=== PATIENT | female | born 1930 | race Caucasian/White ===

== ENCOUNTER 2016-09-17 13:29 | Inpatient (IN) ==
--- NOTE | 2016-09-17 13:36 | Emergency Department Note ---
Disposition Clinical Impression: Altered mental status Disposition: Home, Self-Care Condition: Fair Referrals: Nathan Arndt MD [Primary Care Provider] - Forms: ED Satisfaction Letter Time of Disposition: 15:30 (jacob serna) Altered Mental Status HPI - General Chief Complaint: ED Altered Mental Status Stated Complaint: increased confusion/ incontinent of bowel Time Seen by Provider: 09/17/16 13:35 Source: patient, family Mode of arrival: wheelchair Limitations: no limitations Nursing Notes Reviewed: Yes Vital Signs Reviewed: Yes - History of Present Illness HPI Narrative: Patient seen last evening family states that she is having further deterioration in control bowel movements urination just defecating herself not being able to get make it where normally she was able to that she has no focal weakness no chest pain or chest pressure patient denies feeling funny in anyway just sit and smiles in the wheelchair complaint: altered mental status, confusion Onset (ago): unknown Timing confirmed by: family member (continued deterioration since las pm) Consistency of Symptoms: waxing and waning, getting worse Context: change in medication (by not taking correctly) Associated symptoms: Reports: loss of appetite, malaise, weakness. Denies: chest pain, cough, diaphoresis, fever, chills, headaches, nausea/vomiting, rash , seizure, shortness of breath, syncope, foul smelling urine, difficulty walking , diarrhea, incontinence - Related Data Home Medications Medication Instructions Recorded Confirmed Aspirin 81 mg PO DAILY 03/12/15 09/17/16 Calcium Carbonate/Vitamin D3 600 unit PO DAILY 03/12/15 09/17/16 [Calcium 600+D Softgel] Digoxin [Lanoxin] 125 mcg PO DAILY 03/12/15 09/17/16 Diltiazem CD (24hr) [Cardizem CD] 360 mg PO DAILY 03/12/15 09/17/16 Furosemide [Lasix] 20 mg PO DAILY 03/12/15 09/17/16 Metoprolol [Lopressor] 100 mg PO BID 03/12/15 09/17/16 Valsartan [Diovan] 160 mg PO DAILY 03/12/15 09/17/16 Enoxaparin Sodium [Lovenox] 20 mg SQ QPM 09/16/16 09/17/16 Famotidine [Pepcid] 40 mg PO DAILY 09/16/16 09/17/16 Fluconazole [Diflucan] 150 mg PO DAILY 09/16/16 09/17/16 HYDROcodone/Acet 5/325 mg [[place] 1 tab PO TID 09/16/16 09/17/16 5-325 mg] Rivaroxaban [Xarelto] 20 mg PO DAILY 09/16/16 09/17/16 Trazodone HCl 50 mg PO HS 09/16/16 09/17/16 Previous Rx's Medication Instructions Recorded Isosorbide MONOnitrate (24 HR) 30 mg PO DAILY #30 tab.er.24h 10/21/15 [Imdur] Furosemide [Lasix] 40 mg PO DAILY #15 tablet 09/17/16 Allergies Allergy/AdvReac Type Severity Reaction Status Date / Time amiodarone Allergy Difficulty Verified 10/19/15 08:33 Swallowing ciprofloxacin [From Cipro] Allergy Hives Verified 10/19/15 08:33 doxycycline Allergy Hives Verified 10/19/15 08:33 Sulfa (Sulfonamide Allergy Hives Verified 10/19/15 08:33 Antibiotics) pravastatin AdvReac Dizziness Verified 07/02/16 11:34 tramadol AdvReac Hypertensio Verified 07/02/16 11:34 n All systems ED: reviewed and negative except as stated. Constitutional: Reports: weakness. Denies: fever, chills Eyes: Denies: vision change ENT ED: Denies: ear pain, congestion Cardiovascular: Denies: chest pain, palpitations Respiratory: Denies: cough, dyspnea Gastrointestinal: Denies: abdominal pain, nausea Genitourinary: Denies: urgency, dysuria Musculoskeletal: Denies: back pain, neck pain Integumentary: Denies: rash Neurological: Denies: headache Psychiatric: Denies: anxiety Endocrine: Reports: fatigue Hematological/Lymphatic: Denies: easy bleeding Allergic/Immunologic: Denies: facial swelling Past Medical History - Past Medical History Attestation: Yes The following information was validated with the patient. Source: patient, old records reviewed, nursing notes reviewed Medical history: Reports: arthritis, atrial fibrillation, CHF, GERD, GI bleed, hyperlipidemia, hypertension, osteoporosis Surgical history: Reports: breast surgery, cholecystectomy, herniorrhaphy, pacemaker/AICD (PPM for SSS 2007), other (Patient has had a breast biopsy which was benign.) Psychiatric history: Reports: no psych history [employer] MACHINE history: Reports: no OUTSOLE [employer] MACHINE history - Social History Smoking Status: Former smoker Smokeless Tobacco Status: No Alcohol use: Reports: none Drug use: Reports: none Physical Exam - General Limitations: no limitations General appearance: alert, in no apparent distress, cachectic - Head Head exam: atraumatic, normocephalic, normal inspection - Eye Eye exam: Present: normal appearance, PERRL, EOMI - ENT ENT exam: normal exam, normal oropharynx, mucous membranes moist, TM's normal bilaterally, normal external ear exam - Neck Neck exam: Present: normal inspection, full ROM, trachea midline - Chest Chest inspection: Present: normal inspection, symmetric chest wall rise - Respiratory Respiratory exam: Present: normal lung sounds bilaterally - Cardiovascular Cardiovascular exam: Present: regular rate, normal rhythm, normal heart sounds - Abdominal Exam Abdominal exam: Present: soft, Non-Tender, normal bowel sounds. Absent: mass, pulsatile mass - Expanded Upper Extremity Exam Shoulder exam: Present: normal inspection, full ROM Arm exam: Present: normal inspection, full ROM Elbow exam: Present: normal inspection, full ROM Forearm/Wrist exam: Present: normal inspection, full ROM Hand exam: Present: normal inspection, full ROM Vascular exam: Normal: capillary refill, radial pulse - Expanded Lower Extremity Exam Hip/Pelvis exam: Present: normal inspection, full ROM Upper leg exam: Present: normal inspection, full ROM Knee exam: Present: normal inspection, full ROM Lower leg exam: Present: normal inspection, full ROM Ankle exam: Present: normal inspection, full ROM Foot/toe exam: Present: normal inspection, full ROM Neurovascular/Tendon exam: Present: normal capillary refill, normal fine/light touch. Absent: motor deficit, sensory deficit, tendon deficit Gait: other (global weakness) - Back Exam Back exam: Present: normal inspection, full ROM. Absent: muscle spasm - Neurological Exam Neurological exam: Present: alert, CN II-XII intact, other (pleasantly confused ) - Psychiatric Psychiatric exam: Present: normal affect, normal mood - Skin Skin exam: Present: warm, dry, intact, normal color Course Course Narrative: Is an elderly female cooperative awaiting results of test to be admitted or discharged home family is at bedside today. Become comfortable with explained the findings to the family work and admit her for 23 hour observation with possible arrangements to transfer her ultimately to [facility] bed facility when available Vital Signs Temperature 98.0 F 02/17/17 13:32 Pulse Rate 66 09/17/16 13:32 Respiratory Rate 18 09/17/16 13:32 Blood Pressure 168/73 09/17/16 13:32 O2 Sat by Pulse Oximetry 97 09/17/16 13:32 Temperature 98.0 F 09/17/16 13:36 Pulse Rate 66 09/17/16 13:36 Respiratory Rate 18 09/17/16 13:36 Blood Pressure 168/73 09/17/16 13:36 O2 Sat by Pulse Oximetry 97 09/17/16 13:36 Oxygen Delivery Oxygen Delivery Room Air Altered Mental Status - Differential Diagnosis Likely: altered mental status, delirium, dementia, hypoglycemia - Medical Records Medical records reviewed: Yes I reviewed the patient's medical records. - Lab Data Lab results reviewed: Yes I reviewed the patient's lab results. Result diagrams: 09/17/16 13:53 09/17/16 13:53 Lab Results 09/17/16 09/17/16 09/17/16 Range/Units 13:53 13:53 13:53 WBC 6.0 (4.3-11.1) K/mcL RBC 4.21 (3.82-4.97) M/mcL Hgb 12.8 (11.5-15.4) g/dL Hct 40.5 (35.3-44.9) % MCV 96.2 (83.0-100.0) fL MCH 30.4 (28.0-33.3) pg MCHC 31.6 (31.6-35.5) g/dL RDW 13.1 (11.5-14.5) % Plt Count 152 (140-400) K/mcL MPV 10.7 (9.4-12.4) fL Immature Gran % 0.2 (0-4) % Seg Neutrophils % 70.0 % Lymphocytes % 14.6 % Monocytes % 11.6 % Eosinophils % 2.8 % Basophils % 0.8 % Neutrophils # 4.2 (1.6-8.9) K/mcL Lymphocytes # 0.9 (0.6-4.6) K/mcL Monocytes # 0.7 (0.0-1.3) K/mcL Eosinophils # 0.2 (0.0-0.6) K/mcL Basophils # 0.1 (0.0-0.2) K/mcL PT 32.6 H D (9.4-12.1) Seconds INR 2.9 D APTT 47.5 H (26.0-36.0) Seconds Sodium 143 (136-145) mEq/L Potassium 3.3 L (3.5-4.5) mEq/L Chloride 102 (98-109) mEq/L Carbon Dioxide 31 H (19-29) mEq/L BUN 15 (7-20) mg/dL Creatinine 0.99 (0.57-1.11) mg/dL Est GFR ( Amer) > 60 (> 60) Est GFR (Non-Af Amer) 53 L (> 60) BUN/Creatinine Ratio 15 (6-26) Glucose 130 H (70-99) mg/dL Calculated Osmolality 299 (280-300) Calcium 10.3 (8.6-10.8) mg/dL Troponin I (0-0.03) ng/mL B-Natriuretic Peptide (0-100) pg/mL TSH 1.285 (0.350-4.840) mcIU/mL 09/17/16 09/17/16 Range/Units 13:53 13:53 WBC (4.3-11.1) K/mcL RBC (3.82-4.97) M/mcL Hgb (11.5-15.4) g/dL Hct (35.3-44.9) % MCV (83.0-100.0) fL MCH (28.0-33.3) pg MCHC (31.6-35.5) g/dL RDW (11.5-14.5) % Plt Count (140-400) K/mcL MPV (9.4-12.4) fL Immature Gran % (0-4) % Seg Neutrophils % % Lymphocytes % % Monocytes % % Eosinophils % % Basophils % % Neutrophils # (1.6-8.9) K/mcL Lymphocytes # (0.6-4.6) K/mcL Monocytes # (0.0-1.3) K/mcL Eosinophils # (0.0-0.6) K/mcL Basophils # (0.0-0.2) K/mcL PT (9.4-12.1) Seconds INR APTT (26.0-36.0) Seconds Sodium (136-145) mEq/L Potassium (3.5-4.5) mEq/L Chloride (98-109) mEq/L Carbon Dioxide (19-29) mEq/L BUN (7-20) mg/dL Creatinine (0.57-1.11) mg/dL Est GFR ( Amer) (> 60) Est GFR (Non-Af Amer) (> 60) BUN/Creatinine Ratio (6-26) Glucose (70-99) mg/dL Calculated Osmolality (280-300) Calcium (8.6-10.8) mg/dL Troponin I 0.04 H* (0-0.03) ng/mL B-Natriuretic Peptide 733 H (0-100) pg/mL TSH (0.350-4.840) mcIU/mL TPA Checklist - LKW: 3-4.5 hrs Add. Contraindications Patient/family understanding: The patient/family members have been counseled and understood the risk, benefit , and alternatives of treatment. Critical Care Time Critical Care Time: No
[2016-09-17 13:58] LABS: Basophils # 0.1 K/mcL (0.0-0.2); Basophils % 0.8 %; Eosinophils # 0.2 K/mcL (0.0-0.6); Eosinophils % 2.8 %; Hematocrit 40.5 % (35.3-44.9); Hemoglobin 12.8 g/dL (11.5-15.4); Immature Granulocytes % 0.2 % (0-4); Lymphocytes # 0.9 K/mcL (0.6-4.6); Lymphocytes % 14.6 %; Mean Corpuscular HGB Conc 31.6 g/dL (31.6-35.5); Mean Corpuscular Hemoglobin 30.4 pg (28.0-33.3); Mean Corpuscular Volume 96.2 fL (83.0-100.0); Mean Platelet Volume 10.7 fL (9.4-12.4); Monocytes # 0.7 K/mcL (0.0-1.3); Monocytes % 11.6 %; Neutrophils # 4.2 K/mcL (1.6-8.9); Platelet Count 152 K/mcL (140-400); Red Blood Count 4.21 M/mcL (3.82-4.97); Red Cell Distribution Width 13.1 % (11.5-14.5)
[2016-09-17 14:04] LABS: INR 2.9; Prothrombin Time 32.6 Seconds (9.4-12.1)
[2016-09-17 14:07] LABS: Activated Partial Thrombo Time 47.5 Seconds (26.0-36.0)
[2016-09-17 14:13] LABS: BUN/Creatinine Ratio 15 (6-26); Blood Urea Nitrogen 15 mg/dL (7-20); Calcium 10.3 mg/dL (8.6-10.8); Carbon Dioxide 31 mEq/L (19-29); Chloride 102 mEq/L (98-109); Glucose 130 mg/dL (70-99); Osmolality,Calculated 299 (280-300); Potassium 3.3 mEq/L (3.5-4.5); Sodium 143 mEq/L (136-145); eGFR For African Americans > 60 (> 60); eGFR For Non-African Americans 53 (> 60)
[2016-09-17 14:34] LABS: Thyroid Stimulating Hormone 1.285 mcIU/mL (0.350-4.840)
[2016-09-17] MEDS ORDERED: *HR* LORazepam 2 MG/ML VIAL IVP PRN (17:25)
[2016-09-17] MEDS ORDERED: *HR* LORazepam 2 MG/ML VIAL IVP ONE (18:36)
[2016-09-17] MEDS ORDERED: Naloxone 0.4 MG/ML INJ IVP PRN (19:14)
[2016-09-17] MEDS ORDERED: ENOXAPARIN SODIUM SQ SCH (19:14)
[2016-09-17] MEDS: *HR* LORazepam 2 MG/ML VIAL IVP PRN (22:48)
[2016-09-17] MEDS: *HR* HYDROcodone/Acet 5/325 mg TABLET PO SCH (22:54)
[2016-09-18 01:48] LABS: Basophils # 0.1 K/mcL (0.0-0.2); Basophils % 0.9 %; Eosinophils # 0.2 K/mcL (0.0-0.6); Eosinophils % 3.8 %; Hematocrit 44.9 % (35.3-44.9); Hemoglobin 14.3 g/dL (11.5-15.4); Immature Granulocytes % 0.2 % (0-4); Lymphocytes # 1.2 K/mcL (0.6-4.6); Lymphocytes % 18.7 %; Mean Corpuscular HGB Conc 31.8 g/dL (31.6-35.5); Mean Corpuscular Hemoglobin 30.4 pg (28.0-33.3); Mean Corpuscular Volume 95.5 fL (83.0-100.0); Mean Platelet Volume 10.3 fL (9.4-12.4); Monocytes # 0.6 K/mcL (0.0-1.3); Monocytes % 9.9 %; Neutrophils # 4.2 K/mcL (1.6-8.9); Platelet Count 152 K/mcL (140-400); Red Cell Distribution Width 12.9 % (11.5-14.5); Segmented Neutrophils % 66.5 %
[2016-09-18 01:54] LABS: INR 1.8
[2016-09-18 01:56] LABS: Activated Partial Thrombo Time 38.5 Seconds (26.0-36.0)
[2016-09-18 02:06] LABS: BUN/Creatinine Ratio 13 (6-26); Blood Urea Nitrogen 12 mg/dL (7-20); Calcium 10.6 mg/dL (8.6-10.8); Carbon Dioxide 31 mEq/L (19-29); Chloride 102 mEq/L (98-109); Glucose 99 mg/dL (70-99); Osmolality,Calculated 300 (280-300); Phosphorous 2.4 mg/dL (2.3-4.7); Potassium 3.3 mEq/L (3.5-4.5); Sodium 145 mEq/L (136-145); eGFR For African Americans > 60 (> 60); eGFR For Non-African Americans 58 (> 60)
[2016-09-18] MEDS: *HR* LORazepam 2 MG/ML VIAL IVP PRN ×4 (03:30→23:17)
--- NOTE | 2016-09-18 08:15 | Internal Med History&Physical ---
Date of Encounter: 09/18/16 Time of Encounter: 07:45 Assessment and Plan (1) Altered mental status Current visit: Yes Status: Acute Etiology not obvious at this time. I do not know her baseline mental status. CT of head done since admission because of a fall showed no significant pathology. Further workup to be done as needed. Qualifiers: Altered mental status type: unspecified Qualified Code(s): R41.82 - Altered mental status, unspecified (2) Dementia Current visit: No Status: Chronic Will use Ativan as needed for agitation associated with underlying dementia. Her B12 and TSH were normal on previous labs. Qualifiers: Dementia type: unspecified type Dementia behavioral disturbance: with behavioral disturbance Qualified Code(s): F03.91 - Unspecified dementia with behavioral disturbance (3) Atrial fibrillation Current visit: No Status: Chronic Continue Xarelto and aspirin Qualifiers: Atrial fibrillation type: chronic Qualified Code(s): I48.2 - Chronic atrial fibrillation (4) CKD (chronic kidney disease) stage 3, GFR 30-59 ml/min Current visit: No Status: Chronic Will hold Lasix and give IV fluids. Monitor renal indices (5) Hypokalemia Current visit: Yes Status: Acute We will give supplemental potassium in IV fluids and monitor labs. Internal Medicine - H&P: HPI Chief complaint: Mental status change Admitted From: Home Plans for Post Hospital Care: Home History of present illness: Ms. Bhagat is a 85 year old female who was brought to emergency room after family reported she had decline in mental status and inability to control bowel movements and urination. She was evaluated in emergency room found to have hypokalemia. She was admitted to [facility] floor for ongoing care needs. She can not supply any additional history. Past Med Surg Social Fam HX - Past Medical History Medical history: arthritis, atrial fibrillation, cardiomyopathy, CHF, dementia, GERD, GI bleed, hyperlipidemia, hypertension, osteoporosis Psychiatric history: no psych history - Past Surgical History Surgical History: breast surgery, cholecystectomy, herniorrhaphy, pacemaker/AICD , other - Social History Smoking Status: Former smoker Smokeless Tobacco Status: No Alcohol use: none Drug use: none Internal Medicine - H&P: Meds Aspirin 81 mg PO DAILY 03/12/15 [History] Calcium Carbonate/Vitamin D3 [Calcium 600+D Softgel] 600 unit PO DAILY 03/12/15 [History] Digoxin [Lanoxin] 125 mcg PO DAILY 03/12/15 [History] Diltiazem CD (24hr) [Cardizem CD] 360 mg PO DAILY 03/12/15 [History] Furosemide [Lasix] 20 mg PO DAILY 03/12/15 [History] Metoprolol [Lopressor] 100 mg PO BID 03/12/15 [History] Valsartan [Diovan] 160 mg PO DAILY 03/12/15 [History] Isosorbide MONOnitrate (24 HR) [Imdur] 30 mg PO DAILY #30 tab.er.24h 10/21/15 [ Rx] Enoxaparin Sodium [Lovenox] 20 mg SQ QPM 09/16/16 [History] Famotidine [Pepcid] 40 mg PO DAILY 09/16/16 [History] Fluconazole [Diflucan] 150 mg PO DAILY 09/16/16 [History] HYDROcodone/Acet 5/325 mg [[place] 5-325 mg] 1 tab PO TID 09/16/16 [History] Rivaroxaban [Xarelto] 20 mg PO DAILY 09/16/16 [History] Trazodone HCl 50 mg PO HS 09/16/16 [History] Furosemide [Lasix] 40 mg PO DAILY #15 tablet 09/17/16 [Rx] Allergies amiodarone Allergy (Verified 10/19/15 08:33) Difficulty Swallowing ciprofloxacin [From Cipro] Allergy (Verified 10/19/15 08:33) Hives doxycycline Allergy (Verified 10/19/15 08:33) Hives Sulfa (Sulfonamide Antibiotics) Allergy (Verified 10/19/15 08:33) Hives pravastatin Adverse Reaction (Verified 07/02/16 11:34) Dizziness tramadol Adverse Reaction (Verified 07/02/16 11:34) Hypertension All Systems PM: A 10-system review of systems was performed and is negative for pertinent findings except as documented above in the HPI. Review of systems: Review of systems from a March 2015 [facility] hospitalization were reviewed and revised as below. Gen.: Her weight has decreased from 60.101 kg at time of discharge March 2015 to 51.71 kg on admission now Cardiovascular: She has history of hypertension and CHF. She thinks she had an exercise stress test approximately 2011 which was negative. She has chronic atrial fibrillation. She had a pacemaker placed many years ago. She had a heart catheterization approximately 1999 which was unremarkable. Respiratory: She smoked from approximately age [age] up to 1-1/2 packs per day. She has not had PFTs and does not wear home oxygen. She has been evaluated for VALENCIA with workup negative. GI: She has had a cholecystectomy and GERD. She denies trouble with her liver or exocrine pancreas. CT of abdomen and pelvis done at March 2015 hospitalization showed no significant pathology. : She had kidney/bladder stone removed in the past. She denies other disorders of her kidneys or bladder Neurologic: She denies large distribution strokes or seizures. She has a diagnosis of dementia Endocrine: She has hyperlipidemia but denies diabetes or thyroid disease. Hematology/oncology: She denies blood disorders, cancers, or anemia Musk skeletal: She has DJD and osteoporosis. She denies gout. Psychiatric: She denies anxiety, depression, or other mental health issues. - Constitutional Vitals: Temp Pulse Resp BP Pulse Ox 97.7 F 87 16 172/66 94 L 09/18/16 06:56 09/18/16 06:56 09/18/16 06:56 09/18/16 06:56 09/18/16 04:44 Exam: General: She is a well-developed lean female lying in bed who appears agitated. She does not follow commands. HEENT: Head shows contusion on the left posterior scalp area. Eyes: Her gaze is conjugate. There is no scleral icterus. Mouth: Mucosa appears dry. Neck: There is no thyromegaly or adenopathy noted. Heart: Irregularly irregular without murmurs or gallops Lungs: No wheezes or crackles are heard. Back: She has dorsal kyphosis. She has several ecchymosis of various stages on her back. Abdomen: Scaphoid. No masses or guarding are noted. Extremities: She has an IV in the left lower arm. She is a skin tear on the dorsum of the left wrist. She has DJD changes of her hands and feet. Dorsalis pedis and posterior tibial pulses are trace palpable. Neurologic: Mental status: She is awake but does not respond to voice or attempt answer questions. She appears agitated. Cranial nerves: Her gaze appears conjugate. She has no spontaneous facial movements of significance but her facial tone appear symmetric at rest. Motor: She moves both arms well and attempt to push me away. She moves both legs well to random observation. No further neurologic testing is attempted. Skin: Warm and dry. Internal Med - H&P Results - Labs CBC & Chem 7: 09/18/16 01:35 09/18/16 01:35 Labs: Short CBC 09/18/16 Range/Units 01:35 WBC 6.4 (4.3-11.1) K/mcL Hgb 14.3 D (11.5-15.4) g/dL Hct 44.9 (35.3-44.9) % Plt Count 152 (140-400) K/mcL Neutrophils # 4.2 (1.6-8.9) K/mcL BMP 09/18/16 01:35 Sodium 145 Potassium 3.3 L Chloride 102 Carbon Dioxide 31 H BUN 12 Creatinine 0.92 Glucose 99 Calcium 10.6 Cardiac Enzymes 09/17/16 09/18/16 Range/Units 19:31 01:35 Troponin I 0.04 H* 0.03 (0-0.03) ng/mL - Impressions ITS Impressions Femur X-Ray 09/17/16 19:54 IMPRESSION: Severe tricompartmental degenerative osteoarthritis of the right knee. No definite acute right hip or femur fracture. D/ / Sujit Blas MD / Sujit Blas MD Interpreting Provider: Sujit Blas MD Hip X-Ray 09/17/16 19:54 IMPRESSION: Severe tricompartmental degenerative osteoarthritis of the right knee. No definite acute right hip or femur fracture. D/ / Sujit Blas MD / Sujit Blas MD Interpreting Provider: Sujit Blas MD Knee X-Ray 09/17/16 19:54 IMPRESSION: 1. No acute osseous abnormality of the right knee and right tibia-fibula. 2. Severe osteoarthrosis of the right knee. D/ / Flip Agudelo MD / Flip Agduelo MD Interpreting Provider: Flip Agudelo MD Tibia/Fibula X-Ray 09/17/16 19:54 IMPRESSION: 1. No acute osseous abnormality of the right knee and right tibia-fibula. 2. Severe osteoarthrosis of the right knee. D/ / Flip Agudelo MD / Flip Agudelo MD Interpreting Provider: Flip Agudelo MD Head CT 09/18/16 01:01 IMPRESSION: 1. Left posterior parietal scalp hematoma. No acute osseous abnormality. 2. Stable chronic atrophy and small vessel ischemic changes. No acute intracranial abnormality. D/ / 09/18/2016 07:28:26 Oumar Christine MD / narinder Interpreting Provider: Oumar Christine MD
[2016-09-18] MEDS ORDERED: Furosemide 20 MG TABLET PO SCH (09:00)
[2016-09-18] MEDS ORDERED: Fluconazole 100 MG TABLET PO SCH (09:00)
[2016-09-18] MEDS ORDERED: Famotidine 20 MG TABLET PO SCH (09:00)
[2016-09-18] MEDS ORDERED: Furosemide 40 MG TABLET PO SCH (09:00)
[2016-09-18] MEDS ORDERED: *HR* Rivaroxaban 10 MG TABLET PO SCH (09:00)
[2016-09-18 09:26] LABS: Albumin/Globulin Ratio 1.2 (1.1-2.2); Bilirubin,Direct 0.3 mg/dL (0.0-0.5); Bilirubin,Indirect 0.4 mg/dL (0.0-1.2); Bilirubin,Total 0.7 mg/dL (0.2-1.2); Globulin 3.4 g/dL (2.4-3.5); Total Protein 7.4 g/dL (6.0-8.3)
[2016-09-18] MEDS ORDERED: *HR* Rivaroxaban 15 MG TABLET PO SCH (09:30)
[2016-09-18] MEDS: 0.45 % Sodium Chloride w/KCl 20 MEQ/1,000 ML MLS IVC SCH ×2 (13:32→22:24)
[2016-09-18] MEDS: *HR* Digoxin 0.125 MG TABLET PO SCH (14:03)
[2016-09-18] MEDS: Valsartan 160 MG TABLET PO SCH (14:03)
[2016-09-18] MEDS: *HR* HYDROcodone/Acet 5/325 mg TABLET PO SCH ×2 (14:03→19:16)
[2016-09-18] MEDS: Isosorbide MONOnitrate (24 HR) 30 MG TAB.ER.24H PO SCH (14:03)
[2016-09-18] MEDS: Diltiazem CD (24hr) 180 MG CAPSULE PO SCH (14:03)
[2016-09-18] MEDS: Aspirin 81 MG TAB.CHEW PO SCH (14:03)
[2016-09-18] MEDS: CALCIUM PO SCH (14:04)
[2016-09-18] MEDS: VIT D PO SCH (14:04)
[2016-09-18] MEDS: *HR* Rivaroxaban 15 MG TABLET PO SCH (19:16)
[2016-09-19] MEDS: *HR* LORazepam 2 MG/ML VIAL IVP PRN ×3 (04:27→13:53)
[2016-09-19 07:00] LABS: Basophils # 0.1 K/mcL (0.0-0.2); Basophils % 0.9 %; Eosinophils # 0.2 K/mcL (0.0-0.6); Eosinophils % 2.1 %; Hematocrit 47.1 % (35.3-44.9); Hemoglobin 14.8 g/dL (11.5-15.4); Immature Granulocytes % 0.2 % (0-4); Lymphocytes # 1.2 K/mcL (0.6-4.6); Lymphocytes % 12.7 %; Mean Corpuscular HGB Conc 31.4 g/dL (31.6-35.5); Mean Corpuscular Hemoglobin 30.9 pg (28.0-33.3); Mean Corpuscular Volume 98.3 fL (83.0-100.0); Mean Platelet Volume 10.7 fL (9.4-12.4); Monocytes # 1.2 K/mcL (0.0-1.3); Monocytes % 12.6 %; Neutrophils # 6.7 K/mcL (1.6-8.9); Platelet Count 149 K/mcL (140-400); Red Blood Count 4.79 M/mcL (3.82-4.97); Red Cell Distribution Width 13.1 % (11.5-14.5); Segmented Neutrophils % 71.5 %
[2016-09-19 07:12] LABS: BUN/Creatinine Ratio 16 (6-26); Blood Urea Nitrogen 13 mg/dL (7-20); Calcium 10.1 mg/dL (8.6-10.8); Carbon Dioxide 23 mEq/L (19-29); Chloride 104 mEq/L (98-109); Glucose 92 mg/dL (70-99); Osmolality,Calculated 290 (280-300); Potassium 3.7 mEq/L (3.5-4.5); Sodium 140 mEq/L (136-145); eGFR For African Americans > 60 (> 60); eGFR For Non-African Americans > 60 (> 60)
[2016-09-19] MEDS: Valsartan 160 MG TABLET PO SCH (09:06)
[2016-09-19] MEDS: Aspirin 81 MG TAB.CHEW PO SCH (09:06)
[2016-09-19] MEDS: Diltiazem CD (24hr) 180 MG CAPSULE PO SCH (09:06)
[2016-09-19] MEDS: Isosorbide MONOnitrate (24 HR) 30 MG TAB.ER.24H PO SCH (09:06)
[2016-09-19] MEDS: *HR* Digoxin 0.125 MG TABLET PO SCH (09:06)
[2016-09-19] MEDS: CALCIUM PO SCH (09:07)
[2016-09-19] MEDS: VIT D PO SCH (09:07)
[2016-09-19] MEDS: 0.45 % Sodium Chloride w/KCl 20 MEQ/1,000 ML MLS IVC SCH ×3 (09:16→20:23)
--- NOTE | 2016-09-19 09:36 | Internal Med Progress Note ---
Date of Encounter: 09/19/16 Time of Encounter: 09:25 - Assessment and plan (1) Altered mental status Current Visit: Yes Status: Acute Assessment and plan: Appears slightly improved today. We will continue with IV fluids. We will reduce dose of Ativan Qualifiers: Altered mental status type: unspecified Qualified Code(s): R41.82 - Altered mental status, unspecified (2) Dementia Current Visit: No Status: Chronic Assessment and plan: September 19. We will reduce Ativan dose as per above Qualifiers: Dementia type: unspecified type Dementia behavioral disturbance: with behavioral disturbance Qualified Code(s): F03.91 - Unspecified dementia with behavioral disturbance (3) Atrial fibrillation Current Visit: No Status: Chronic Assessment and plan: September 19. Continue Xarelto and aspirin when able to safely swallow Qualifiers: Atrial fibrillation type: chronic Qualified Code(s): I48.2 - Chronic atrial fibrillation (4) CKD (chronic kidney disease) stage 3, GFR 30-59 ml/min Current Visit: No Status: Chronic Assessment and plan: September 19. Continue to hold Lasix and give IV fluids. Renal indices are further improved today (5) Hypokalemia Current Visit: Yes Status: Acute Assessment and plan: September 19. Resolved. Continue IV fluids with potassium supplementation. Recheck labs in a.m. - Subjective Interval history: September 19. She has had no new problems develop. She is nonverbal - Constitutional Vitals: Temp Pulse Resp BP Pulse Ox 98.9 F 109 20 165/85 94 L 09/19/16 09:08 09/19/16 09:08 09/19/16 09:08 09/19/16 09:08 09/19/16 09:08 Exam: She is lying in bed resting comfortably. She moves her arms and legs occasionally spontaneously. Arm tone is symmetric. Her neck is supple and nontender on flexion and without meningeal signs. Her skin turgor is better. Heart is irregularly irregular. Legs show no edema. Reviewed her medications and lab results. Internal Medicine: Result - Labs CBC & Chem 7: 09/19/16 06:25 09/19/16 06:25 Labs: Short CBC 09/19/16 Range/Units 06:25 WBC 9.4 (4.3-11.1) K/mcL Hgb 14.8 (11.5-15.4) g/dL Hct 47.1 H (35.3-44.9) % Plt Count 149 (140-400) K/mcL Neutrophils # 6.7 (1.6-8.9) K/mcL BMP 09/19/16 06:25 Sodium 140 Potassium 3.7 Chloride 104 Carbon Dioxide 23 BUN 13 Creatinine 0.81 Glucose 92 Calcium 10.1 - ABG Interpretation ABG results: PT/INR, D-dimer PT 20.0 Seconds (9.4-12.1) H 09/18/16 01:35 - Impressions Impressions Head CT 09/18/16 01:01 IMPRESSION: 1. Left posterior parietal scalp hematoma. No acute osseous abnormality. 2. Stable chronic atrophy and small vessel ischemic changes. No acute intracranial abnormality. D/ / 09/18/2016 07:28:26 Oumar Christine MD / narinder Interpreting Provider: Oumar Christine MD Consult Discharge Plan - Plan Referrals: Nathan Arndt MD [Primary Care Provider] - 1 week
[2016-09-19] MEDS: *HR* Metoprolol 5 MG/5 ML VIAL IVP SCH ×2 (12:19→19:40)
[2016-09-19] MEDS: *HR* Rivaroxaban 15 MG TABLET PO SCH (22:25)
[2016-09-20 04:31] LABS: Basophils # 0.1 K/mcL (0.0-0.2); Basophils % 0.9 %; Eosinophils # 0.2 K/mcL (0.0-0.6); Eosinophils % 2.3 %; Hematocrit 38.9 % (35.3-44.9); Hemoglobin 12.8 g/dL (11.5-15.4); Immature Granulocytes % 0.3 % (0-4); Lymphocytes % 11.6 %; Mean Corpuscular HGB Conc 32.9 g/dL (31.6-35.5); Mean Corpuscular Hemoglobin 30.8 pg (28.0-33.3); Mean Corpuscular Volume 93.7 fL (83.0-100.0); Mean Platelet Volume 12.1 fL (9.4-12.4); Monocytes % 11.4 %; Neutrophils # 6.6 K/mcL (1.6-8.9); Platelet Count 207 K/mcL (140-400); Red Blood Count 4.15 M/mcL (3.82-4.97); Red Cell Distribution Width 12.9 % (11.5-14.5); Segmented Neutrophils % 73.5 %
[2016-09-20 04:49] LABS: BUN/Creatinine Ratio 21 (6-26); Blood Urea Nitrogen 16 mg/dL (7-20); Calcium 9.9 mg/dL (8.6-10.8); Carbon Dioxide 21 mEq/L (19-29); Chloride 104 mEq/L (98-109); Glucose 86 mg/dL (70-99); Osmolality,Calculated 286 (280-300); Potassium 4.2 mEq/L (3.5-4.5); Sodium 138 mEq/L (136-145); eGFR For African Americans > 60 (> 60); eGFR For Non-African Americans > 60 (> 60)
[2016-09-20] MEDS: 0.45 % Sodium Chloride w/KCl 20 MEQ/1,000 ML MLS IVC SCH ×2 (07:49→18:45)
[2016-09-20] MEDS: Isosorbide MONOnitrate (24 HR) 30 MG TAB.ER.24H PO SCH (08:05)
[2016-09-20] MEDS: Valsartan 160 MG TABLET PO SCH (08:05)
[2016-09-20] MEDS: Diltiazem CD (24hr) 180 MG CAPSULE PO SCH (08:05)
[2016-09-20] MEDS: Aspirin 81 MG TAB.CHEW PO SCH (08:05)
[2016-09-20] MEDS: CALCIUM PO SCH (08:06)
[2016-09-20] MEDS: *HR* Digoxin 0.125 MG TABLET PO SCH (08:06)
[2016-09-20] MEDS: VIT D PO SCH (08:06)
[2016-09-20] MEDS: *HR* Metoprolol 5 MG/5 ML VIAL IVP SCH ×3 (10:48→23:06)
--- NOTE | 2016-09-20 16:59 | Internal Med Progress Note ---
Date of Encounter: 09/20/16 Time of Encounter: 09:30 - Assessment and plan (1) Altered mental status Current Visit: Yes Status: Acute Assessment and plan: September 19. Appears slightly improved today. We will continue with IV fluids. We will reduce dose of Ativan September 20. Repeat CT scan showed 4 mm right subdural hematoma that does not require surgical intervention. I reviewed this finding with the family. MRI could not be done because of a pacemaker. Continue present management for now. Qualifiers: Altered mental status type: unspecified Qualified Code(s): R41.82 - Altered mental status, unspecified (2) Dementia Current Visit: No Status: Chronic Assessment and plan: September 19. We will reduce Ativan dose as per above Qualifiers: Dementia type: unspecified type Dementia behavioral disturbance: with behavioral disturbance Qualified Code(s): F03.91 - Unspecified dementia with behavioral disturbance (3) Atrial fibrillation Current Visit: No Status: Chronic Assessment and plan: September 19. Continue Xarelto and aspirin when able to safely swallow September 20. Will remain off Xarelto and aspirin for now since documented SDH Qualifiers: Atrial fibrillation type: chronic Qualified Code(s): I48.2 - Chronic atrial fibrillation (4) CKD (chronic kidney disease) stage 3, GFR 30-59 ml/min Current Visit: No Status: Chronic Assessment and plan: September 19. Continue to hold Lasix and give IV fluids. Renal indices are further improved today September 20. Renal indices are now normal. Continue IV fluids. (5) Hypokalemia Current Visit: Yes Status: Acute Assessment and plan: September 19. Resolved. Continue IV fluids with potassium supplementation. Recheck labs in a.m. September 20. Resolved. Continue present management - Subjective Interval history: September 19. She has had no new problems develop. She is nonverbal September 20. There are no new problems reported. Nursing staff reported she had some drainage from her left ear. - Constitutional Vitals: Temp Pulse Resp BP Pulse Ox 98.3 F 96 24 155/65 98 09/20/16 16:00 09/20/16 16:00 09/20/16 16:00 09/20/16 16:00 09/20/16 16:00 Exam: She is obtunded but slightly more responsive than yesterday. She does open her eyes and followed command to stick out her tongue. She is not conversant however. Left tympanic membrane shows TM perforation that appears old. No canal drainage is seen. The right TM is obscured by right red blood. She has a hematoma of the left posterior parietal scalp with ecchymosis in the postauricular area. There is also some ecchymosis in the right posterior auricular skin. No pitting edema of her legs. She has equal arm tone on passive range of motion and moves her arms more meaningfully today. I reviewed her medications and lab results. Internal Medicine: Result - Labs CBC & Chem 7: 09/20/16 04:15 09/20/16 04:15 - ABG Interpretation ABG results: PT/INR, D-dimer PT 20.0 Seconds (9.4-12.1) H 09/18/16 01:35 - Impressions Impressions Head CT 09/20/16 11:06 IMPRESSION: 1. There is a 4 mm subdural hemorrhage noted along the right cerebral convexity, new since the previous study. 2. There is a left scalp hematoma, slightly decreased in size. No underlying fracture. Results were called to Dr. Jones at 11:55 a.m. on 09/20/2016. D/ / 09/20/2016 11:59:11 Juan Ford MD / Mikki Ashton Interpreting Provider: Juan Ford MD - VTE Documentation of Mechanical Device: Graduated compression elastic hosiery Consult Discharge Plan - Plan Referrals: Nathan Arndt MD [Primary Care Provider] - 1 week
[2016-09-20] MEDS: *HR* Rivaroxaban 15 MG TABLET PO SCH (18:47)
[2016-09-21] MEDS: *HR* LORazepam 2 MG/ML VIAL IVP PRN ×3 (02:03→22:00)
[2016-09-21 06:02] LABS: Basophils # 0.1 K/mcL (0.0-0.2); Basophils % 0.9 %; Eosinophils # 0.5 K/mcL (0.0-0.6); Eosinophils % 5.7 %; Hematocrit 39.2 % (35.3-44.9); Hemoglobin 12.7 g/dL (11.5-15.4); Immature Granulocytes % 0.1 % (0-4); Lymphocytes # 1.2 K/mcL (0.6-4.6); Lymphocytes % 14.8 %; Mean Corpuscular HGB Conc 32.4 g/dL (31.6-35.5); Mean Corpuscular Hemoglobin 30.2 pg (28.0-33.3); Mean Corpuscular Volume 93.3 fL (83.0-100.0); Monocytes # 1.1 K/mcL (0.0-1.3); Monocytes % 12.8 %; Neutrophils # 5.4 K/mcL (1.6-8.9); Platelet Count 150 K/mcL (140-400); Red Cell Distribution Width 12.9 % (11.5-14.5); Segmented Neutrophils % 65.7 %
[2016-09-21 06:22] LABS: BUN/Creatinine Ratio 25 (6-26); Blood Urea Nitrogen 18 mg/dL (7-20); Calcium 9.9 mg/dL (8.6-10.8); Carbon Dioxide 22 mEq/L (19-29); Chloride 107 mEq/L (98-109); Glucose 78 mg/dL (70-99); Osmolality,Calculated 291 (280-300); Potassium 4.2 mEq/L (3.5-4.5); Sodium 140 mEq/L (136-145); eGFR For African Americans > 60 (> 60); eGFR For Non-African Americans > 60 (> 60)
[2016-09-21] MEDS: MetroNIDAZOLE 500 MG/100 ML 500 MG/100 ML BAG IVPB SCH ×3 (06:48→23:07)
[2016-09-21] MEDS: 0.45 % Sodium Chloride w/KCl 20 MEQ/1,000 ML MLS IVC SCH ×2 (06:53→21:33)
[2016-09-21] MEDS: Isosorbide MONOnitrate (24 HR) 30 MG TAB.ER.24H PO SCH (09:50)
[2016-09-21] MEDS: Diltiazem CD (24hr) 180 MG CAPSULE PO SCH (09:50)
[2016-09-21] MEDS: Valsartan 160 MG TABLET PO SCH (09:50)
[2016-09-21] MEDS: CALCIUM PO SCH (09:51)
[2016-09-21] MEDS: VIT D PO SCH (09:51)
[2016-09-21] MEDS: *HR* Digoxin 0.125 MG TABLET PO SCH (09:51)
[2016-09-21] MEDS ORDERED: *HR* FentaNYL PATCH 12 MCG PATCH TD SCH (12:15)
--- NOTE | 2016-09-21 12:20 | Internal Med Progress Note ---
Date of Encounter: 09/21/16 Time of Encounter: 12:05 - Assessment and plan (1) Altered mental status Current Visit: Yes Status: Acute Assessment and plan: September 19. Appears slightly improved today. We will continue with IV fluids. We will reduce dose of Ativan September 20. Repeat CT scan showed 4 mm right subdural hematoma that does not require surgical intervention. I reviewed this finding with the family. MRI could not be done because of a pacemaker. Continue present management for now. September 21. Mental status slightly improved today. Continue supportive care. Had a discussion with the daughters about nutritional needs. We will ask for bedside swallowing evaluation. Family agreed to feeding tube placement if necessary Qualifiers: Altered mental status type: unspecified Qualified Code(s): R41.82 - Altered mental status, unspecified (2) Dementia Current Visit: No Status: Chronic Assessment and plan: September 19. We will reduce Ativan dose as per above September 21. Continue Ativan as presently scheduled Qualifiers: Dementia type: unspecified type Dementia behavioral disturbance: with behavioral disturbance Qualified Code(s): F03.91 - Unspecified dementia with behavioral disturbance (3) Atrial fibrillation Current Visit: No Status: Chronic Assessment and plan: September 19. Continue Xarelto and aspirin when able to safely swallow September 20. Will remain off Xarelto and aspirin for now since documented SDH Qualifiers: Atrial fibrillation type: chronic Qualified Code(s): I48.2 - Chronic atrial fibrillation (4) CKD (chronic kidney disease) stage 3, GFR 30-59 ml/min Current Visit: No Status: Chronic Assessment and plan: September 19. Continue to hold Lasix and give IV fluids. Renal indices are further improved today September 20. Renal indices are now normal. Continue IV fluids. (5) Compression fracture Current Visit: Yes Status: Acute Assessment and plan: September 21. X-ray showed T11- L1 suspected fractures. No displacement is reported. Significant underlying osteopenia. I will give BenGay, Lidoderm patch, Duragesic patch, and when necessary morphine. - Subjective Interval history: September 19. She has had no new problems develop. She is nonverbal September 20. There are no new problems reported. Nursing staff reported she had some drainage from her left ear. September 21. She chel nonverbal. She is slightly more awake. - Constitutional Vitals: Temp Pulse Resp BP Pulse Ox 98.6 F 86 18 154/84 98 02/21/17 09:53 09/21/16 09:53 09/21/16 09:53 09/21/16 09:53 09/21/16 09:53 Exam: She is more awake and has had meaningful interaction with her daughters over the past few hours. She followed commands today to stick out her tongue. She does not verbalize words however. Her extremities show no edema. She is wearing Allevyn with heel protectors bilaterally. Reviewed her medications and labs and x-ray results. Internal Medicine: Result - Labs CBC & Chem 7: 09/21/16 05:05 09/21/16 05:05 Labs: Short CBC 09/21/16 Range/Units 05:05 WBC 8.2 (4.3-11.1) K/mcL Hgb 12.7 (11.5-15.4) g/dL Hct 39.2 (35.3-44.9) % Plt Count 150 (140-400) K/mcL Neutrophils # 5.4 (1.6-8.9) K/mcL BMP 09/21/16 05:05 Sodium 140 Potassium 4.2 Chloride 107 Carbon Dioxide 22 BUN 18 Creatinine 0.73 Glucose 78 Calcium 9.9 - ABG Interpretation ABG results: PT/INR, D-dimer PT 20.0 Seconds (9.4-12.1) H 09/18/16 01:35 - Impressions Impressions Head CT 09/20/16 11:06 IMPRESSION: 1. There is a 4 mm subdural hemorrhage noted along the right cerebral convexity, new since the previous study. 2. There is a left scalp hematoma, slightly decreased in size. No underlying fracture. Results were called to Dr. Jones at 11:55 a.m. on 09/20/2016. D/ / 09/20/2016 11:59:11 Juan Ford MD / Mikki Ashton Interpreting Provider: Juan Ford MD Lumbar Spine X-Ray 09/20/16 15:02 IMPRESSION: Suspected fractures, T11 and T12 and possibly L1. However the lateral projection is limited with apparent spine tilting medial to lateral. Bones are also quite demineralized. Further evaluation may be necessary with CT or MRI depending on degree of clinical suspicion for acute fracture. D/ / Mendel Rucker MD / Mendel Rucker MD Interpreting Provider: Mendel Rucker MD Pelvis X-Ray 09/20/16 15:08 IMPRESSION: Osteopenia without acute fracture or dislocation. Detection of a subtle nondisplaced fracture in the setting of osteopenia is limited, and cross-sectional imaging could be obtained if clinically indicated, with MRI being the most sensitive. D/ / Fernando Rome MD / Fernando Rome MD Interpreting Provider: Fernando Rome MD - VTE Documentation of Mechanical Device: Graduated compression elastic hosiery Consult Discharge Plan - Plan Referrals: Nathan Arndt MD [Primary Care Provider] - 1 week
[2016-09-21] MEDS: *HR* Metoprolol 5 MG/5 ML VIAL IVP SCH ×2 (13:57→22:05)
[2016-09-21] MEDS: Methyl Salicylate/Menthol 28 GM TUBE TP SCH ×2 (14:45→22:01)
[2016-09-21] MEDS: *HR* Morphine 2 MG/ML SYRINGE IVP PRN (23:41)
[2016-09-22] MEDS: MetroNIDAZOLE 500 MG/100 ML 500 MG/100 ML BAG IVPB SCH ×2 (11:04→18:35)
[2016-09-22] MEDS: Methyl Salicylate/Menthol 28 GM TUBE TP SCH (11:09)
[2016-09-22] MEDS: Diltiazem CD (24hr) 180 MG CAPSULE PO SCH (11:11)
[2016-09-22] MEDS: *HR* Digoxin 0.125 MG TABLET PO SCH (11:12)
[2016-09-22] MEDS: Valsartan 160 MG TABLET PO SCH (11:12)
[2016-09-22] MEDS: Isosorbide MONOnitrate (24 HR) 30 MG TAB.ER.24H PO SCH (11:12)
[2016-09-22] MEDS: *HR* LORazepam 2 MG/ML VIAL IVP PRN ×2 (11:22→22:40)
--- NOTE | 2016-09-22 11:35 | Internal Med Progress Note ---
Date of Encounter: 09/22/16 Time of Encounter: 10:00 - Assessment and plan (1) Altered mental status Current Visit: Yes Status: Acute Assessment and plan: September 19. Appears slightly improved today. We will continue with IV fluids. We will reduce dose of Ativan September 20. Repeat CT scan showed 4 mm right subdural hematoma that does not require surgical intervention. I reviewed this finding with the family. MRI could not be done because of a pacemaker. Continue present management for now. September 21. Mental status slightly improved today. Continue supportive care. Had a discussion with the daughters about nutritional needs. We will ask for bedside swallowing evaluation. Family agreed to feeding tube placement if necessary September 22. Mental status unchanged. We will proceed with feeding tube placement as per above. Discussed this with the daughter by phone Qualifiers: Altered mental status type: unspecified Qualified Code(s): R41.82 - Altered mental status, unspecified (2) Dementia Current Visit: No Status: Chronic Assessment and plan: September 19. We will reduce Ativan dose as per above September 21. Continue Ativan as presently scheduled Qualifiers: Dementia type: unspecified type Dementia behavioral disturbance: with behavioral disturbance Qualified Code(s): F03.91 - Unspecified dementia with behavioral disturbance (3) Atrial fibrillation Current Visit: No Status: Chronic Assessment and plan: September 19. Continue Xarelto and aspirin when able to safely swallow September 20. Will remain off Xarelto and aspirin for now since documented SDH September 22. We will give dose of Lanoxin IV to control ventricular response rate Qualifiers: Atrial fibrillation type: chronic Qualified Code(s): I48.2 - Chronic atrial fibrillation (4) CKD (chronic kidney disease) stage 3, GFR 30-59 ml/min Current Visit: No Status: Chronic Assessment and plan: September 19. Continue to hold Lasix and give IV fluids. Renal indices are further improved today September 20. Renal indices are now normal. Continue IV fluids. (5) Compression fracture Current Visit: Yes Status: Acute Assessment and plan: September 21. X-ray showed T11- L1 suspected fractures. No displacement is reported. Significant underlying osteopenia. I will give BenGay, Lidoderm patch, Duragesic patch, and when necessary morphine. September 22. Continue above regimen - Subjective Interval history: September 19. She has had no new problems develop. She is nonverbal September 20. There are no new problems reported. Nursing staff reported she had some drainage from her left ear. September 21. She remains nonverbal. She is slightly more awake. September 22. She remains nonverbal and obtunded. Speech/swallow therapy consult was ordered yesterday but the RN who called in the consult described the patient's condition and the NURSERY NURSE did not feel bedside evaluation was required and felt the patient should remain NPO. I feel the patient will likely strongly resists a Dobbhoff tube insertion and likely attempt to pull out the tube. I discussed with the family yesterday about G-tube being placed and they did not oppose this. I spoke with Dr. Daniel at [facility] this morning and he will arrange for a G-tube insertion as an outpatient status. She will return to [facility] after the procedure. - Constitutional Vitals: Temp Pulse Resp BP Pulse Ox 98.4 F 69 16 168/76 94 L 09/22/16 10:03 09/22/16 10:03 09/22/16 10:03 09/22/16 10:09/22/16 10:03 Exam: She is minimally to voice and light touch. Heart is regular with rate approximately 100/m. Lungs are clear anteriorly. Extremities show no pitting edema. Reviewed her medications and lab results. Internal Medicine: Result - Labs CBC & Chem 7: 09/21/16 05:05 09/21/16 05:05 - ABG Interpretation ABG results: PT/INR, D-dimer PT 20.0 Seconds (9.4-12.1) H 09/18/16 01:35 - VTE Documentation of Mechanical Device: Graduated compression elastic hosiery Consult Discharge Plan - Plan Referrals: Nathan Arndt MD [Primary Care Provider] - 1 week
[2016-09-22] MEDS ORDERED: *HR* Digoxin 0.5 MG/2 ML AMPUL IVP ONE ×2 (11:41→13:30)
[2016-09-22] MEDS: *HR* Metoprolol 5 MG/5 ML VIAL IVP SCH (12:53)
[2016-09-22] MEDS: *HR* Morphine 2 MG/ML SYRINGE IVP PRN ×2 (12:59→21:49)
[2016-09-22] MEDS: 0.45 % Sodium Chloride w/KCl 20 MEQ/1,000 ML MLS IVC SCH (13:22)
[2016-09-22] MEDS ORDERED: *HR* FentaNYL (PF) 100 MCG/2 ML VIAL ONE (15:39)
[2016-09-22] MEDS ORDERED: *HR* Midazolam HCl 5 MG/5 ML VIAL IVP ONE (15:39)
[2016-09-23] MEDS: MetroNIDAZOLE 500 MG/100 ML 500 MG/100 ML BAG IVPB SCH (01:30)
[2016-09-23] MEDS: *HR* Morphine 2 MG/ML SYRINGE IVP PRN ×2 (02:10→11:13)
[2016-09-23] MEDS: *HR* Metoprolol 5 MG/5 ML VIAL IVP SCH (05:20)
[2016-09-23] MEDS: Methyl Salicylate/Menthol 28 GM TUBE TP SCH (05:22)
[2016-09-23] MEDS: *HR* LORazepam 2 MG/ML VIAL IVP PRN ×2 (05:26→11:13)
[2016-09-23] MEDS: 0.45 % Sodium Chloride w/KCl 20 MEQ/1,000 ML MLS IVC SCH (06:54)
[2016-09-23] MEDS: Isosorbide MONOnitrate (24 HR) 30 MG TAB.ER.24H PO SCH (09:38)
[2016-09-23] MEDS: Valsartan 160 MG TABLET PO SCH (09:38)
[2016-09-23] MEDS: Diltiazem CD (24hr) 180 MG CAPSULE PO SCH (09:38)
[2016-09-23] MEDS: *HR* Digoxin 0.125 MG TABLET PO SCH (09:38)
[2016-09-23] MEDS ORDERED: Valsartan 160 MG TABLET GTUBE SCH (09:48)
[2016-09-23] MEDS ORDERED: *HR* Digoxin 0.125 MG TABLET PO SCH (09:48)
[2016-09-23] MEDS ORDERED: Lactobacillus 1 EACH CAP.SPRINK GTUBE SCH (10:00)
[2016-09-23] MEDS ORDERED: MetroNIDAZOLE 500 MG TABLET GTUBE SCH (10:00)
[2016-09-23 11:57] VITALS: BP 142/83
--- NOTE | 2016-09-23 12:22 | Discharge Summary ---
Date of Encounter: 09/23/16 Time of Encounter: 09:30 - Discharge Diagnosis (1) Altered mental status Priority: Primary Status: Acute Qualifiers: Altered mental status type: unspecified Qualified Code(s): R41.82 - Altered mental status, unspecified (2) Dementia Priority: Secondary Status: Chronic Qualifiers: Dementia type: unspecified type Dementia behavioral disturbance: with behavioral disturbance Qualified Code(s): F03.91 - Unspecified dementia with behavioral disturbance (3) Atrial fibrillation Priority: Secondary Status: Chronic Qualifiers: Atrial fibrillation type: chronic Qualified Code(s): I48.2 - Chronic atrial fibrillation (4) CKD (chronic kidney disease) stage 3, GFR 30-59 ml/min Priority: Secondary Status: Chronic (5) Compression fracture Priority: Secondary Status: Acute (6) Subdural hematoma Priority: Secondary Status: Acute (7) C. difficile diarrhea Priority: Secondary Status: Acute - Discharge Medications Prescriptions: Morphine Oral CONC [Roxanol] 5 mg PO Q4HR #120 ml FentaNYL PATCH [Duragesic] 12 mcg TD Q72H #2 patch.td72 LORazepam Oral Conc [Ativan Oral Conc] 1 mg PO Q4H #120 mls Home Medications: Aspirin 81 mg PO DAILY 03/12/15 [History] Calcium Carbonate/Vitamin D3 [Calcium 600+D Softgel] 600 unit PO DAILY 03/12/15 [History] Digoxin [Lanoxin] 125 mcg PO DAILY 03/12/15 [History] Valsartan [Diovan] 160 mg PO DAILY 03/12/15 [History] Isosorbide MONOnitrate (24 HR) [Imdur] 30 mg PO DAILY #30 tab.er.24h 10/21/15 [ Rx] FentaNYL PATCH [Duragesic] 12 mcg TD Q72H #2 patch.td72 09/23/16 [Rx] LORazepam Oral Conc [Ativan Oral Conc] 1 mg PO Q4H #120 mls 09/23/16 [Rx] Lactobacillus [Culturelle] 1 each GTUBE BID 8 Days 09/23/16 [Rx] Lidocaine Patch [Lidoderm 5% patch] 1 each TP DAILY adh..patch 09/23/16 [Rx] Methyl Salicylate/Menthol [Bengay] 1 appl TP BID tube 09/23/16 [Rx] Metoprolol [Lopressor] 50 mg GTUBE BID tablet 09/23/16 [Rx] MetroNIDAZOLE [Flagyl] 500 mg GTUBE Q8H 8 Days 09/23/16 [Rx] Morphine Oral CONC [Roxanol] 5 mg PO Q4HR #120 ml 09/23/16 [Rx] Rivaroxaban [Xarelto] 20 mg PO DAILY #0 09/23/16 [Rx] Allergies/Adverse Reactions: Allergies amiodarone Allergy (Verified 10/19/15 08:33) Difficulty Swallowing ciprofloxacin [From Cipro] Allergy (Verified 10/19/15 08:33) Hives doxycycline Allergy (Verified 10/19/15 08:33) Hives Sulfa (Sulfonamide Antibiotics) Allergy (Verified 10/19/15 08:33) Hives pravastatin Adverse Reaction (Verified 07/02/16 11:34) Dizziness tramadol Adverse Reaction (Verified 07/02/16 11:34) Hypertension Date of admission: 09/20/16 10:10 Primary care physician: Nathan Arndt MD - Patient Status Disposition: Transfer SNF Condition: Fair Functional capacity at discharge: bed bound - Discharge Instructions - Diet and Activity Activity: as per physical therapy Diet: other (Jevity/equivalent 1 can 5 times daily, follow with 200 mL water) Hospital course: Ms. Bhagat is a 85 year old female who was brought to emergency room after family reported she had decline in mental status and inability to control bowel movements and urination. She was evaluated in emergency room found to have hypokalemia. She was admitted to [facility] floor for ongoing care needs. Initial orders were written by the emergency room physician. I saw her on September 18 and performed the history and physical. She could not supply any additional history on admission because of obtundation. CT scan done on admission did not show significant pathology other than age-related changes and a scalp hematoma. She had confusion and sustained a fall the evening of admission while attempting to get out of bed. A sitter was ordered for the remainder of her hospital stay. After the fall she seemed to the having back pain. Her mental status did not improve so repeat CT of head was ordered along with LS-spine series. Head CT showed 4 mm right subdural hematoma which did not require surgical intervention. The spine series showed compression fractures of T11, T12, and possibly L1 without displacement. She was started on Lidoderm patch, BenGay ointment, and fentanyl patch. She also had available prn analgesics and Ativan concentrate. Her mental status improved slightly from the day of admission but she was unable to have significant meaningful conversation. I ordered MRI of the brain to further evaluate her for brainstem stroke but this could not be performed due to the presence of a pacemaker. I explained to the family on more than one occasion that my clinical suspicion was she had sustained a stroke that was not visualized on head CT. I did not see evidence of infectious pathology such as encephalitis. She had no seizure activity. PT and OT evaluations were ordered. IV fluids were given and her azotemia resolved. She was unable tolerate oral intake so consult was made with Dr. Daniel at [facility] and a G-tube was placed the afternoon of September 22. She will continued to receive tube feedings upon discharge to the [facility]. Her azotemia resolved by withholding Lasix and giving IV fluids. Hypokalemia resolved with potassium supplementation. She remained in atrial fibrillation. Her Xarelto and aspirin were held initially because of inability to take in oral food, fluids, or medication. After the subdural hematoma was documented I continue to hold them. She will restart aspirin upon discharge and Xarelto in 3 days. She developed diarrhea and stool returned positive for C. difficile. She was started on Flagyl IV during her hospital stay until the G-tube was placed. She was converted to Flagyl per G-tube and will continued this for 8 additional days after discharge. Family requested she be discharged to [facility] for ongoing care needs. Arrangements for discharge were completed on September 23. - Time Spent with Patient Total time spent providing and/or coordinating discharge services: - Constitutional Vitals: Temp Pulse Resp BP Pulse Ox 98.4 F 105 17 142/83 94 L 09/23/16 11:56 09/23/16 11:56 09/23/16 11:56 09/23/16 11:56 09/23/16 11:56 - VTE Documentation of Mechanical Device: Graduated compression elastic hosiery
--- NOTE | 2016-09-23 12:37 | Physician Discharge Referral ---
ExtendedCare Referral Info Transfer To: [facility] Provider in Charge: Robert Provider in Charge after Transfer: PCP - Diagnosis (1) Altered mental status Priority: Primary Status: Acute (2) Dementia Priority: Secondary Status: Chronic (3) Atrial fibrillation Priority: Secondary Status: Chronic (4) CKD (chronic kidney disease) stage 3, GFR 30-59 ml/min Priority: Secondary Status: Chronic (5) Compression fracture Priority: Secondary Status: Acute (6) Subdural hematoma Priority: Secondary Status: Acute (7) C. difficile diarrhea Priority: Secondary Status: Acute Aware of Diagnosis: Family Aware of Prognosis: Family - Transfer Medications Prescriptions: Morphine Oral CONC [Roxanol] 5 mg PO Q4HR #120 ml FentaNYL PATCH [Duragesic] 12 mcg TD Q72H #2 patch.td72 LORazepam Oral Conc [Ativan Oral Conc] 1 mg PO Q4H #120 mls Home Medications: Aspirin 81 mg PO DAILY 03/12/15 [History] Calcium Carbonate/Vitamin D3 [Calcium 600+D Softgel] 600 unit PO DAILY 03/12/15 [History] Digoxin [Lanoxin] 125 mcg PO DAILY 03/12/15 [History] Valsartan [Diovan] 160 mg PO DAILY 03/12/15 [History] Isosorbide MONOnitrate (24 HR) [Imdur] 30 mg PO DAILY #30 tab.er.24h 10/21/15 [ Rx] FentaNYL PATCH [Duragesic] 12 mcg TD Q72H #2 patch.td72 09/23/16 [Rx] LORazepam Oral Conc [Ativan Oral Conc] 1 mg PO Q4H #120 mls 09/23/16 [Rx] Lactobacillus [Culturelle] 1 each GTUBE BID 8 Days 09/23/16 [Rx] Lidocaine Patch [Lidoderm 5% patch] 1 each TP DAILY adh..patch 09/23/16 [Rx] Methyl Salicylate/Menthol [Bengay] 1 appl TP BID tube 09/23/16 [Rx] Metoprolol [Lopressor] 50 mg GTUBE BID tablet 09/23/16 [Rx] MetroNIDAZOLE [Flagyl] 500 mg GTUBE Q8H 8 Days 09/23/16 [Rx] Morphine Oral CONC [Roxanol] 5 mg PO Q4HR #120 ml 09/23/16 [Rx] Rivaroxaban [Xarelto] 20 mg PO DAILY #0 09/23/16 [Rx] Allergies/Adverse Reactions: Allergies amiodarone Allergy (Verified 10/19/15 08:33) Difficulty Swallowing ciprofloxacin [From Cipro] Allergy (Verified 10/19/15 08:33) Hives doxycycline Allergy (Verified 10/19/15 08:33) Hives Sulfa (Sulfonamide Antibiotics) Allergy (Verified 10/19/15 08:33) Hives pravastatin Adverse Reaction (Verified 07/02/16 11:34) Dizziness tramadol Adverse Reaction (Verified 07/02/16 11:34) Hypertension - Respiratory Orders Oxygen / L per min (Oxygen at 2 L/m by nasal cannula when necessary to keep sats greater than 90%.) Smoking Cessation: Smoking cessation has been advised. For more information, call the [place] Tobacco Quit Line at 0-677-IZJN-NOW. - Lab Orders Lab Orders: Other (include drug levels w/frequency) (CBC with differential, CMP , digoxin level in 3 days) - Rehabiliation Orders Rehab Orders: Evaluation for Physical Therapy, Evaluation for Occupational Therapy - Diet Orders Tube Feedings (type/amount/rate): Jevity or equivalent 5 cans per day, follow with 200 mL water. CERTIFICATION: I certify that the transfer of the above named patient to an Extended Care Facility is necessary for the continuing treatment of the diagnosis listed. The above information is true and accurate reflection of patient's current condition. Confidential - Redisclosure prohibited without a patient's written consent.
== END 2016-09-23 14:00 | DRG 64 ==
LOC: INPPIK 13:29 → EMEROOPIK 13:29 → INPPIK 16:30
PROVIDERS: ADMIT Internal Medicine; ATTEND Internal Medicine